=== PATIENT | female | born 1995 | race Caucasian/White ===

== ENCOUNTER 2019-04-27 03:42 | Emergency (ER) | payer SELFPAY ==
[~2019-04-27] VITALS: Ht 160 cm; Wt 68.0 kg
[2019-04-27] MEDS ORDERED: ACETAMINOPHEN WITH CODEINE 300/30MG TABLET PO ONE (05:00)
[2019-04-27 06:26] VITALS: BP 123/76
== END 2019-04-27 06:27 | disposition home or self-care (01) ==
LOC: ER 03:42
DX: S10.93XA Contusion of unspecified part of neck, initial encounter (principal); S30.0XXA Contusion of lower back and pelvis, initial encounter; M25.511 Pain in right shoulder; Z88.1 Allergy status to other antibiotic agents; Z90.49 Acquired absence of other specified parts of digestive tract; V43.02XA Car driver injured in collision with other type car in nontraffic accident, initial encounter; Y93.89 Activity, other specified; Y92.89 Other specified places as the place of occurrence of the external cause; Y99.8 Other external cause status
CPT/HCPCS: 99282